=== PATIENT | female | born 1960 | race Caucasian/White ===

== ENCOUNTER → 2024-01-09 15:35 | Outpatient (REF) | payer OTHER, SELFPAY | LOC: HWWDC 15:35 | PROVIDERS: ATTENDING PHYSICIAN Physician Assistant Medical | DX: Z12.31 Encounter for screening mammogram for malignant neoplasm of breast (principal) | CPT/HCPCS: 77063; 77067 ==

== ENCOUNTER → 2025-01-13 11:35 | Outpatient (REF) | payer OTHER, SELFPAY | LOC: HWRAD 11:35 | PROVIDERS: ATTENDING PHYSICIAN Family Medicine; FAMILY PHYSICIAN Physician Assistant Medical | DX: M81.0 Age-related osteoporosis without current pathological fracture (principal); I10 Essential (primary) hypertension; F41.9 Anxiety disorder, unspecified; R07.81 Pleurodynia; Z91.81 History of falling | CPT/HCPCS: 71101 ==

== ENCOUNTER → 2025-01-22 11:08 | Outpatient (REF) | payer OTHER, SELFPAY | LOC: HWRAD 11:08 | PROVIDERS: ATTENDING PHYSICIAN Physician Assistant Medical | DX: Q25.46 Tortuous aortic arch (principal) | CPT/HCPCS: 71250 ==

== ENCOUNTER → 2025-07-04 07:25 | Outpatient (REF) | payer MEDICARE, OTHER, SELFPAY | LOC: RCS 07:25 | PROVIDERS: ATTENDING PHYSICIAN Internal Medicine Cardiovascular Disease; FAMILY PHYSICIAN Physician Assistant Medical | DX: I71.21 Aneurysm of the ascending aorta, without rupture (principal) | CPT/HCPCS: 93306 ==

== ENCOUNTER → 2025-07-08 09:48 | Outpatient (REF) | payer MEDICARE, OTHER, SELFPAY | LOC: HWRAD 09:48 | PROVIDERS: ATTENDING PHYSICIAN Internal Medicine Cardiovascular Disease; FAMILY PHYSICIAN Physician Assistant Medical | DX: I71.21 Aneurysm of the ascending aorta, without rupture (principal) | CPT/HCPCS: 76770 ==

== ENCOUNTER → 2025-07-17 09:50 | Outpatient (REF) | payer MEDICARE, OTHER, SELFPAY | LOC: RCS 09:50 | PROVIDERS: ATTENDING PHYSICIAN Internal Medicine Cardiovascular Disease; FAMILY PHYSICIAN Physician Assistant Medical | DX: I71.21 Aneurysm of the ascending aorta, without rupture (principal); I45.10 Unspecified right bundle-branch block; I10 Essential (primary) hypertension | CPT/HCPCS: 93017; 93350 ==

== ENCOUNTER → 2025-09-25 14:05 | Outpatient (REF) | payer MEDICARE, OTHER, SELFPAY | LOC: DHVS 14:05 | PROVIDERS: ATTENDING PHYSICIAN Surgery Vascular Surgery; FAMILY PHYSICIAN Physician Assistant Medical | DX: R29.898 Other symptoms and signs involving the musculoskeletal system (principal); I72.3 Aneurysm of iliac artery | CPT/HCPCS: 74174; 93922; 93925; Q9967 ==